=== PATIENT | male | born 1990 | race African-American/Black ===

== ENCOUNTER 2018-02-01 09:10 | Emergency (ER) | payer SELFPAY ==
[2018-02-01 09:14] VITALS: BP 141/83
[2018-02-01] MEDS ORDERED: OXYCODONE-ACETAMINOPHEN 5-325 MG TABLET PO ONE (09:19)
[2018-02-01] MEDS ORDERED: PENICILLIN V POTASSIUM 500 MG TABLET PO ONE (09:19)
--- NOTE | 2018-02-01 09:24 | ER Document Report ---
HPI - HPI Pain Level: 5 Notes: Patient is an otherwise healthy 27-year-old male who presents with chief complaint of dental pain. Patient has pain to tooth #32, and is fractured. Patient reports the pain has been going on for several days but has worsened now. Patient denies any fever. - CONSTITUTIONAL Constitutional: DENIES: Fever, Chills - EENT EENT: DENIES: Sore Throat, Ear Pain, Eye problems - NEURO Neurology: DENIES: Headache, Weakness, Vision blurred, Dizzinesss / Vertigo - CARDIOVASCULAR Cardiovascular: DENIES: Chest pain - RESPIRATORY Respiratory: DENIES: Trouble Breathing, Coughing - GASTROINTESTINAL Gastrointestinal: DENIES: Abdominal Pain, Black / Bloody Stools - MUSCULOSKELETAL Musculoskeletal: DENIES: Extremity pain Past Medical History - General Information source: Patient - Social History Smoking Status: Never Smoker Chew tobacco use (# tins/day): No Frequency of alcohol use: None Drug Abuse: None Family History: None Patient has suicidal ideation: No Patient has homicidal ideation: No - Medical History Medical History: Negative - Past Medical History Cardiac Medical History: Denies: Hx Coronary Artery Disease, Hx Hypertension Pulmonary Medical History: Denies: Hx Asthma Endocrine Medical History: Denies: Hx Diabetes Mellitus Type 1, Hx Diabetes Mellitus Type 2 Renal/ Medical History: Denies: Hx Peritoneal Dialysis Surgical Hx: Negative - Immunizations Immunizations up to date: Yes Hx Diphtheria, Pertussis, Tetanus Vaccination: Yes Vertical Provider Document - CONSTITUTIONAL Notes: PHYSICAL EXAMINATION: GENERAL: Well-appearing, well-nourished and in no acute distress. HEAD: Atraumatic, normocephalic. EYES: Pupils equal round extraocular movements intact, conjunctiva are normal. ENT: Nares patent, fractured tooth #32. No drainable abscess noted. NECK: Normal range of motion LUNGS: No respiratory distress Musculoskeletal: Normal range of motion NEUROLOGICAL: Normal speech, normal gait. PSYCH: Normal mood, normal affect. SKIN: Warm, Dry, normal turgor, no rashes or lesions noted. - INFECTION CONTROL TRAVEL OUTSIDE OF THE [place] IN LAST 30 DAYS: No Course - Re-evaluation Re-evalutation: 02/01/18 09:21 No drainable abscess identified, patient will be placed on penicillin, he will take Motrin 600 mg every 6 hours and I will give him a very short course of hydrocodone for severe pain. Patient to follow-up with dental. - Vital Signs Vital signs: Temp Pulse Resp BP Pulse Ox 98.6 F 76 16 141/83 H 97 02/01/18 09:13 02/01/18 09:13 02/01/18 09:13 02/01/18 09:13 02/01/18 09:13 Discharge - Discharge Clinical Impression: Pain, dental Condition: Stable Disposition: HOME, SELF-CARE Additional Instructions: TOOTHACHE: Your pain is due to dental decay. The tooth must be repaired in order for you to feel better. You will, therefore, be referred to a dentist. We do not have dentists on the staff at [facility]. Severe swelling or drainage around a tooth usually means a dental abscess. This also requires evaluation and treatment by the dentist, but antibiotics may be prescribed while awaiting dental treatment. You should be rechecked immediately if you develop major swelling of the face, increasing pain, a lump in the jaw or gums, headache, difficulty swallowing, or fever. ORAL NARCOTIC MEDICATION: You have been given a prescription for pain control. This medication is a narcotic. It's best taken with food, as nausea can result if taken on an empty stomach. Don't operate machinery or drive within six hours of taking this medication. Do not combine this medicine with alcohol, or with any medication which can cause sedation (such as cold tablets or sleeping pills) unless you get permission from the physician. Narcotics tend to cause constipation. If possible, drink plenty of fluids and eat a diet high in fiber and fruits. Please be aware that prescription narcotics also have the potential for abuse. People become addicted to these medications because of the general sense of wellbeing that they induce. This feeling along with a significant reduction in tension, anxiety, and aggression provides a stimulating seductive quality to these drugs. Once your pain is under control, we encourage you to discard your unused narcotics. PENICILLIN V K: You have been given a prescription for Penicillin VK. Your physician has determined that this is the best antibiotic for your condition. Pen VK can be taken with meals, however more of the antibiotic gets into the bloodstream if it's taken on an empty stomach. Penicillin usually has no side effects. However, allergy to penicillins is common. If you have had an allergic reaction to any drug of the penicillin family, you should never take any other penicillin. Notify your doctor at once if you develop hives, itching, swelling, faintness, or shortness of breath. FOLLOW-UP CARE: You have been referred for follow-up care to the dentists listed below. Call the dentists office for an appointment as you were instructed or within the next two days. If you experience worsening or a significant change in your symptoms, notify the physician immediately or return to the Emergency Department at any time for re-evaluation. Take antibiotics as prescribed. Please take Motrin 600 mg every 6 hours this will help with both pain and inflammation. Use the hydrocodone 1 tablet every 4 hours only as needed for severe pain. [facility] [address] [place], [place] I am unsure if do extraction for wisdome teeth, call first. [facility] [address] [place] [address] [facility] [place] [address] [facility] [address] [facility] [address] [email or web address] [address] [place] [address] Saturday- 8:00am to 5:00 pm [facility]. Charges based on income and family size and accepts Medicare, Medicaid, and Insurances Will pull molars Prescriptions: Hydrocodone Bit/Acetaminophen [Hydrocodon-Acetaminophen 5-325] 1 each PO Q4H PRN #8 tablet PRN Reason: For Pain Penicillin V Potassium [Penicillin Vk 500 mg Tablet] 500 mg PO BID #20 tablet Referrals: DARON MARIE MD [Primary Care Provider] - Follow up as needed
== END 2018-02-01 09:31 | disposition home or self-care (01) ==
LOC: ER 09:10
DX: K08.89 Other specified disorders of teeth and supporting structures (principal); S02.5XXA Fracture of tooth (traumatic), initial encounter for closed fracture; X58.XXXA Exposure to other specified factors, initial encounter
CPT/HCPCS: 99282

== ENCOUNTER 2018-02-03 08:39 | Emergency (ER) | payer SELFPAY ==
[2018-02-03] MEDS ORDERED: IBUPROFEN 400 MG TABLET PO ONE (09:27)
[2018-02-03] MEDS ORDERED: ACETAMINOPHEN 325 MG TABLET PO ONE (09:27)
--- NOTE | 2018-02-03 09:27 | ER Document Report ---
HPI - HPI Patient complains to provider of: Dental pain Onset/Duration: Persistent Quality of pain: Achy Pain Level: 1 Context: Patient presents with a 3-day history of dental pain to right lower tooth. Patient states he was here recently and prescribed hydrocodone and penicillin. Patient states that he had better pain relief with oxycodone and is requesting a prescription for that today. Patient without any fever or facial swelling. Patient has not followed up with a dentist yet. Associated Symptoms: Other - Dental pain Exacerbated by: Denies Relieved by: Denies Similar symptoms previously: Yes Recently seen / treated by doctor: Yes - ROS ROS below otherwise negative: Yes Systems Reviewed and Negative: Yes All other systems reviewed and negative - CONSTITUTIONAL Constitutional: DENIES: Fever - NEURO Neurology: DENIES: Headache - GASTROINTESTINAL Gastrointestinal: DENIES: Nausea, Patient vomiting - MUSCULOSKELETAL Musculoskeletal: DENIES: Back Pain - DERM Skin Color: Normal Skin Problems: None Past Medical History - General Information source: Patient - Social History Smoking Status: Never Smoker Frequency of alcohol use: None Drug Abuse: None Occupation: Retail Lives with: Family Family History: None - Medical History Medical History: Negative - Past Medical History Cardiac Medical History: Denies: Hx Coronary Artery Disease, Hx Hypertension Pulmonary Medical History: Denies: Hx Asthma Endocrine Medical History: Denies: Hx Diabetes Mellitus Type 1, Hx Diabetes Mellitus Type 2 Renal/ Medical History: Denies: Hx Peritoneal Dialysis Surgical Hx: Negative - Immunizations Immunizations up to date: Yes Hx Diphtheria, Pertussis, Tetanus Vaccination: Yes Vertical Provider Document - CONSTITUTIONAL Agree With Documented VS: Yes Exam Limitations: No Limitations General Appearance: WD/WN, No Apparent Distress - INFECTION CONTROL TRAVEL OUTSIDE OF THE [place] IN LAST 30 DAYS: No - HEENT HEENT: Atraumatic, Normocephalic. negative: Pharyngeal Exudate, Pharyngeal Tenderness, Pharyngeal Erythema, Tympanic Membrane Red, Tympanic Membrane Bulging Mouth Diagram: 1 - Dental fracture, tenderness, no trismus, no abscess, no sublingual or submental swelling - NECK Neck: Normal Inspection, Supple. negative: Lymphadenopathy-Left, Lymphadenopathy-Right - RESPIRATORY Respiratory: Breath Sounds Normal, No Respiratory Distress - CARDIOVASCULAR Cardiovascular: Regular Rate, Regular Rhythm - BACK Back: Normal Inspection - MUSCULOSKELETAL/EXTREMETIES Musculoskeletal/Extremeties: MAEW - NEURO Level of Consciousness: Awake, Alert, Appropriate Motor/Sensory: No Motor Deficit - DERM Integumentary: Warm, Dry, No Rash Course - Re-evaluation Re-evalutation: 02/03/18 09:25 Patient without any drainable abscess or trismus, patient nontoxic in appearance. Patient requesting Percocet prescription instead of [place] as it seemed to manage his pain better. Patient advised that the emergency department does not refill narcotic medications for issue such as this offered patient dental block, patient refused and prefers oral medications. - Vital Signs Vital signs: Temp Pulse Resp BP Pulse Ox 98.5 F 101 H 14 146/79 H 98 02/03/18 08:43 02/03/18 08:43 02/03/18 08:43 02/03/18 08:43 02/03/18 08:43 Discharge - Discharge Clinical Impression: Pain, dental Condition: Stable Disposition: HOME, SELF-CARE Instructions: Toothache (OM) Additional Instructions: Return immediately for any new or worsening symptoms Followup with your primary care provider, call tomorrow to make a followup appointment Continue taking your antibiotic as previously prescribed Prescriptions: Naproxen [Naprosyn 250 Nmg Tablet] 1 tab PO BID #14 tablet Forms: Return to Work Referrals: [facility] [Provider Group] - Follow up as needed
[2018-02-03 09:47] VITALS: BP 123/65
== END 2018-02-03 09:47 | disposition home or self-care (01) ==
LOC: ER 08:39
DX: K08.89 Other specified disorders of teeth and supporting structures (principal)
CPT/HCPCS: 99283; J3490